=== PATIENT | male | born 1990 | race Hispanic/Latino ===

== ENCOUNTER 2017-12-06 18:57 | Emergency (ER) | payer OTHER ==
--- NOTE | 2017-12-06 19:24 | EDPHYS ---
Physician Documentation [facility] Name: Efe Cox Age: 27 yrs Sex: Male : 1990 Arrival Date: 12/06/2017 Time: 19:00 Bed 10 Private MD: None, None ED Physician Michael Veronica HPI: 12/06 19:21 This 27 yrs old Male presents to ER via Ambulatory with complaints of Knee rn Pain. 19:21 The patient presents with pain, swelling. The complaints affect the left knee. Onset: rn The symptoms/episode began/occurred at an unknown time. Associated signs and symptoms: Pertinent positives: swelling, Pertinent negatives fever, weakness. Severity of symptoms: At their worst the symptoms were mild, in the emergency department the symptoms are unchanged. The patient has not experienced similar symptoms in the past. Reports works constantly on his knees, hurts to put pressure on his knees, no trauma, able to walk and climb without difficulty. NO IV drug use. No medical problems. . Historical: - Allergies: 19:09 No Known Allergies; ak1 - Home Meds: 19:09 None [Active]; ak1 - PMHx: 19:09 None; ak1 - PSHx: 19:09 None; ak1 - Immunization history:: Adult Immunizations unknown. - Social history:: Smoking status: Patient uses tobacco products, smokes one-half pack cigarettes per day. - Ebola Screening: : No symptoms or risks identified at this time. - Family history:: not pertinent. - Hospitalizations: : No recent hospitalization is reported. ROS: 19:21 Constitutional: Negative for fever, chills, and weight loss, Eyes: Negative for injury, rn pain, redness, and discharge, Cardiovascular: Negative for chest pain, palpitations, and edema, Respiratory: Negative for shortness of breath, cough, wheezing, and pleuritic chest pain, Abdomen/GI: Negative for abdominal pain, nausea, vomiting, diarrhea, and constipation, MS/Extremity: + left knee pain Skin: Negative for injury, rash, and discoloration, Neuro: Negative for headache, weakness, numbness, tingling, and seizure. Exam: 19:21 Constitutional: This is a well developed, well nourished patient who is awake, alert, rn and in no acute distress. Skin: Warm, dry with normal turgor. Normal color with no rashes, no lesions, and no evidence of cellulitis. MS/ Extremity: Pulses equal, no cyanosis. Neurovascular intact. Full, normal range of motion. Equal circumference. + small left knee effusion, no fluctuance, no pain with ROM. Vital Signs: 19:09 BP 154 / 81; Pulse 88; Resp 18; Temp 99.4(TE); Pulse Ox 100% on R/A; Weight 92.99 kg ak1 (R); Height 5 ft. 5 in. (165.10 cm) (R); Pain 6/10; 19:09 Body Mass Index 34.11 (92.99 kg, 165.10 cm) ak1 MDM: 19:13 Patient medically screened. rn 19:21 Differential diagnosis: tendonitis, pre-patellar bursitis, knee effusion. Data rn reviewed: vital signs, nurses notes, and as a result, I will discharge patient. Counseling: I had a detailed discussion with the patient and/or guardian regarding: the historical points, exam findings, and any diagnostic results supporting the discharge/admit diagnosis, the need for outpatient follow up, to return to the emergency department if symptoms worsen or persist or if there are any questions or concerns that arise at home. Special discussion: I discussed with the patient/guardian in detail that at this point there is no indication for admission to the hospital. It is understood, however, that if the symptoms persist or worsen the patient needs to return immediately for re-evaluation. Administered Medications: No medications were administered Disposition: 12/06/17 19:24 Discharged to Home. Impression: Pain in left knee, Prepatellar bursitis, left knee. - Condition is Stable. - Discharge Instructions: Bursitis, Knee Pain. - Prescriptions for Clindamycin HCl 300 mg Oral Capsule - take 1 capsule by ORAL route every 6 hours for 10 days; 40 capsule. Ibuprofen 800 mg Oral Tablet - take 1 tablet by ORAL route every 12 hours As needed take with food; 20 tablet. - Medication Reconciliation Form, Thank You Letter, Antibiotic Education, Prescription Opioid Use, Work release form form. - Follow up: Private Physician; When: As needed; Reason: Recheck today's complaints, Re-evaluation by your physician. - Problem is an ongoing problem. - Symptoms have improved. Signatures: Michael Veronica MD MD rn Krenek, Amber, RN RN ak1 Kamilla Coyle RN RN rk2 Corrections: (The following items were deleted from the chart) 19:34 19:24 12/06/2017 19:24 Discharged to Home. Impression: Pain in left knee; Prepatellar rk2 bursitis, left knee. Condition is Stable. Discharge Instructions: Bursitis, Knee Pain. Forms are Medication Reconciliation Form, Thank You Letter, Antibiotic Education, Prescription Opioid Use. Follow up: Private Physician; When: As needed; Reason: Recheck today's complaints, Re-evaluation by your physician. Problem is an ongoing problem. Symptoms have improved. rn
--- NOTE | 2017-12-06 19:24 | ER ---
Nurse's Notes [facility] Name: Efe Cox Age: 27 yrs Sex: Male : 1990 Arrival Date: 12/06/2017 Time: 19:00 Bed 10 Private MD: None, None Diagnosis: Pain in left knee;Prepatellar bursitis, left knee Presentation: 12/06 19:08 Presenting complaint: Patient states: left knee pain and swelling since last night. pt ak1 kneels at work. Transition of care: patient was not received from another setting of care. Onset of symptoms was December 05, 2017. Risk Assessment: Do you want to hurt yourself or someone else? Patient reports no desire to harm self or others. Initial Sepsis Screen: Does the patient meet any 2 criteria? No. Patient's initial sepsis screen is negative. Does the patient have a suspected source of infection? No. Patient's initial sepsis screen is negative. Care prior to arrival: None. 19:08 Method Of Arrival: Ambulatory ak1 19:08 Acuity: RAN 4 ak1 Triage Assessment: 19:09 General: Appears in no apparent distress. Behavior is calm, cooperative. Pain: ak1 Complains of pain in left knee. EENT: No signs and/or symptoms were reported regarding the EENT system. Neuro: No deficits noted. Cardiovascular: No deficits noted. Respiratory: No deficits noted. GI: No signs and/or symptoms were reported involving the gastrointestinal system. : No signs and/or symptoms were reported regarding the genitourinary system. Derm: No signs and/or symptoms reported regarding the dermatologic system. Musculoskeletal: Range of motion: intact in all extremities, Swelling present in left knee Reports pain in left knee. Historical: - Allergies: 19:09 No Known Allergies; ak1 - Home Meds: 19:09 None [Active]; ak1 - PMHx: 19:09 None; ak1 - PSHx: 19:09 None; ak1 - Immunization history:: Adult Immunizations unknown. - Social history:: Smoking status: Patient uses tobacco products, smokes one-half pack cigarettes per day. - Ebola Screening: : No symptoms or risks identified at this time. - Family history:: not pertinent. - Hospitalizations: : No recent hospitalization is reported. Screenin:10 Abuse screen: Denies threats or abuse. Denies injuries from another. Nutritional ak1 screening: No deficits noted. Tuberculosis screening: No symptoms or risk factors identified. Fall Risk None identified. Vital Signs: 19:09 BP 154 / 81; Pulse 88; Resp 18; Temp 99.4(TE); Pulse Ox 100% on R/A; Weight 92.99 kg ak1 (R); Height 5 ft. 5 in. (165.10 cm) (R); Pain 6/10; 19:09 Body Mass Index 34.11 (92.99 kg, 165.10 cm) ak1 ED Course: 19:00 Patient arrived in ED. sb2 19:00 None, None is Private Physician. sb2 19:08 Triage completed. ak1 19:09 Michael Veronica MD is Attending Physician. rn 19:09 Arm band placed on Patient placed in an exam room, on a stretcher, Patient notified of ak1 wait time. 19:10 Patient has correct armband on for positive identification. ak1 19:14 Kamilla Coyle RN is Primary Nurse. rk2 19:33 No provider procedures requiring assistance completed. Patient did not have IV access rk2 during this emergency room visit. Administered Medications: No medications were administered Outcome: 19:24 Discharge ordered by . rn 19:33 Discharged to home ambulatory. rk2 19:33 Condition: good 19:33 Discharge instructions given to patient, Prescriptions given X 2. 19:34 Patient left the ED. rk2 Signatures: Michael Veronica MD MD rn Krenek, Amber RN RN ak1 Kamilla Coyle RN RN rk2 Indira Casas sb2
== END 2017-12-06 19:34 | disposition home or self-care (01) ==
LOC: ER 18:57
DX: M70.42 Prepatellar bursitis, left knee (principal); M25.562 Pain in left knee; F17.210 Nicotine dependence, cigarettes, uncomplicated
CPT/HCPCS: 99282

== ENCOUNTER 2018-08-10 20:20 | Emergency (ER) | payer OTHER ==
[2018-08-10] MEDS ORDERED: DIAZEPAM 5 MG TABLET ONE (21:20)
[2018-08-10] MEDS ORDERED: HYDROCODONE/APAP 5/325 MG TAB ONE (21:20)
--- NOTE | 2018-08-10 21:44 | ER ---
Nurse's Notes [facility] Name: Efe Cox Age: 28 yrs Sex: Male : 1990 Arrival Date: 08/10/2018 Time: 20:24 Bed 27 Private MD: Diagnosis: Pain in right shoulder;Muscle spasm of back Presentation: 08/10 20:27 Presenting complaint: Patient states: Patient does a lot of lifting at work and has tl1 been c/o pain in his bilateral arms for 2 days. Work sent him to hospital because they noticed swelling in his right arm and his blood pressure was elevated. Transition of care: patient was not received from another setting of care. Onset of symptoms was August 10, 2018. Risk Assessment: Do you want to hurt yourself or someone else? Patient reports no desire to harm self or others. Initial Sepsis Screen: Does the patient meet any 2 criteria? No. Patient's initial sepsis screen is negative. Does the patient have a suspected source of infection? No. Patient's initial sepsis screen is negative. Care prior to arrival: None. 20:27 Method Of Arrival: Ambulatory tl1 20:27 Acuity: RAN 3 tl1 Historical: - Allergies: 20:29 No Known Allergies; tl1 - Home Meds: 20:29 None [Active]; tl1 - PMHx: 20:29 None; tl1 - PSHx: 20:29 Knee surgery; tl1 - Immunization history:: Adult Immunizations up to date. - Social history:: Smoking status: Patient uses tobacco products, smokes one-half pack cigarettes per day, Patient uses alcohol, occasionally. - Ebola Screening: : Patient negative for fever greater than or equal to 101.5 degrees Fahrenheit, and additional compatible Ebola Virus Disease symptoms Patient denies exposure to infectious person Patient denies travel to an Ebola-affected area in the 21 days before illness onset. Screenin:35 Abuse screen: Denies threats or abuse. Denies injuries from another. Nutritional ca1 screening: No deficits noted. Tuberculosis screening: No symptoms or risk factors identified. Fall Risk None identified. Assessment: 20:35 General: Appears in no apparent distress. comfortable, Behavior is calm, cooperative, ca1 appropriate for age. Pain: Complains of pain in right trapezius and right scapular area Pain does not radiate. Pain currently is 5 out of 10 on a pain scale. Neuro: Level of Consciousness is awake, alert, obeys commands, Oriented to person, place, time, situation. Cardiovascular: Heart tones S1 S2 present Capillary refill < 3 seconds Patient's skin is warm and dry. Respiratory: Airway is patent Respiratory effort is even, unlabored, Respiratory pattern is regular, symmetrical. GI: No signs and/or symptoms were reported involving the gastrointestinal system. : No signs and/or symptoms were reported regarding the genitourinary system. EENT: No signs and/or symptoms were reported regarding the EENT system. Derm: Skin is intact, is healthy with good turgor, Skin is pink, warm \T\ dry. Musculoskeletal: Circulation, motion, and sensation intact. Range of motion: limited in right shoulder. 21:30 Reassessment: Patient appears in no apparent distress at this time. Patient and/or ca1 family updated on plan of care and expected duration. Pain level reassessed. Patient is alert, oriented x 3, equal unlabored respirations, skin warm/dry/pink. Patient states feeling better. Vital Signs: 20:30 BP 123 / 77; Pulse 78; Resp 16; Temp 98; Pulse Ox 100% ; Weight 86.18 kg; Height 5 ft. tl1 7 in. (170.18 cm); Pain 4/10; 21:35 BP 129 / 84; Pulse 81; Resp 18; Pulse Ox 99% on R/A; ca1 20:30 Body Mass Index 29.76 (86.18 kg, 170.18 cm) tl1 ED Course: 20:24 Patient arrived in ED. es 20:29 Triage completed. tl1 20:30 Arm band placed on right wrist. tl1 20:32 Whitney Rubi, RN is Primary Nurse. ca1 20:35 Patient has correct armband on for positive identification. Bed in low position. Call ca1 light in reach. Side rails up X 1. Pulse ox on. NIBP on. 20:36 Megan Chavez FNP-C is PHCP. snw 20:36 Tre Vallecillo MD is Attending Physician. snw 21:51 No provider procedures requiring assistance completed. Patient did not have IV access ca1 during this emergency room visit. Administered Medications: 21:11 Drug: Telferner 5 mg-325 mg 1 tabs Route: PO; rv 21:46 Follow up: Response: No adverse reaction; Pain is decreased ca1 21:11 Drug: Valium 5 mg Route: PO; rv 21:45 Follow up: Response: No adverse reaction; Pain is decreased ca1 Outcome: 21:44 Discharge ordered by . beau 21:51 Discharged to home ambulatory, with family. ca1 21:51 Condition: stable 21:51 Discharge instructions given to patient, Instructed on discharge instructions, follow up and referral plans. medication usage, Demonstrated understanding of instructions, follow-up care, medications, Prescriptions given X 2. 21:56 Patient left the ED. ca1 Signatures: Megan Chavez, RETAIL SALES PROFESSIONAL-C RETAIL SALES PROFESSIONAL-Csnw Kate Atkinson Tonya RN RN tl1 Jose Maria Murdock RN RN rv Whitney Rubi RN RN ca1
--- NOTE | 2018-08-10 21:44 | EDPHYS ---
Physician Documentation [facility] Name: Efe Cox Age: 28 yrs Sex: Male : 1990 Arrival Date: 08/10/2018 Time: 20:24 Bed 27 Private MD: ED Physician Tre Vallecillo HPI: 08/10 21:34 This 28 yrs old Male presents to ER via Ambulatory with complaints of Arm snw Pain, arm swollen. 21:34 The patient or guardian complains of pain, that is acute, swelling. The complaints snw affect the posterior aspect of right shoulder. Context: resulted from repetitive motion repetitive lifting. Onset: The symptoms/episode began/occurred gradually, 2 day(s) ago, and became worse. Associated signs and symptoms: Pertinent positives: pain, swelling, tingling. Severity of symptoms: At their worst the symptoms were moderate. It is unknown whether or not the patient has had similar symptoms in the past. It is unknown whether or not the patient has recently seen a physician. Historical: - Allergies: 20:29 No Known Allergies; tl1 - Home Meds: 20:29 None [Active]; tl1 - PMHx: 20:29 None; tl1 - PSHx: 20:29 Knee surgery; tl1 - Immunization history:: Adult Immunizations up to date. - Social history:: Smoking status: Patient uses tobacco products, smokes one-half pack cigarettes per day, Patient uses alcohol, occasionally. - Ebola Screening: : Patient negative for fever greater than or equal to 101.5 degrees Fahrenheit, and additional compatible Ebola Virus Disease symptoms Patient denies exposure to infectious person Patient denies travel to an Ebola-affected area in the 21 days before illness onset. ROS: 21:33 Constitutional: Negative for fever, chills, and weight loss, Eyes: Negative for injury, snw pain, redness, and discharge, ENT: Negative for injury, pain, and discharge, Neck: Negative for injury, pain, and swelling, Cardiovascular: Negative for chest pain, palpitations, and edema, Respiratory: Negative for shortness of breath, cough, wheezing, and pleuritic chest pain, Abdomen/GI: Negative for abdominal pain, nausea, vomiting, diarrhea, and constipation, Back: Negative for injury and pain, : Negative for injury, bleeding, discharge, and swelling, Skin: Negative for injury, rash, and discoloration, Neuro: Negative for headache, weakness, numbness, tingling, and seizure, Psych: Negative for depression, anxiety, suicide ideation, homicidal ideation, and hallucinations. 21:33 MS/extremity: Positive for swelling, tenderness, of the right shoulder and right scapular area. Exam: 21:28 Constitutional: This is a well developed, well nourished patient who is awake, alert, snw and in no acute distress. Head/Face: Normocephalic, atraumatic. Eyes: Pupils equal round and reactive to light, extra-ocular motions intact. Lids and lashes normal. Conjunctiva and sclera are non-icteric and not injected. Cornea within normal limits. Periorbital areas with no swelling, redness, or edema. ENT: Nares patent. No nasal discharge, no septal abnormalities noted. Tympanic membranes are normal and external auditory canals are clear. Oropharynx with no redness, swelling, or masses, exudates, or evidence of obstruction, uvula midline. Mucous membranes moist. Neck: Trachea midline, no thyromegaly or masses palpated, and no cervical lymphadenopathy. Supple, full range of motion without nuchal rigidity, or vertebral point tenderness. No Meningismus. Chest/axilla: Normal chest wall appearance and motion. Nontender with no deformity. No lesions are appreciated. Cardiovascular: Regular rate and rhythm with a normal S1 and S2. No gallops, murmurs, or rubs. Normal PMI, no JVD. No pulse deficits. Respiratory: Lungs have equal breath sounds bilaterally, clear to auscultation and percussion. No rales, rhonchi or wheezes noted. No increased work of breathing, no retractions or nasal flaring. Abdomen/GI: Soft, non-tender, with normal bowel sounds. No distension or tympany. No guarding or rebound. No evidence of tenderness throughout. Back: No spinal tenderness. No costovertebral tenderness. Full range of motion. Skin: Warm, dry with normal turgor. Normal color with no rashes, no lesions, and no evidence of cellulitis. Neuro: Awake and alert, GCS 15, oriented to person, place, time, and situation. Cranial nerves II-XII grossly intact. Motor strength 5/5 in all extremities. Sensory grossly intact. Cerebellar exam normal. Normal gait. Psych: Awake, alert, with orientation to person, place and time. Behavior, mood, and affect are within normal limits. 21:28 Musculoskeletal/extremity: Extremities: grossly normal except: noted in the right trapezius and right shoulder: pain, ROM: full active range of motion, full passive range of motion, Pulses: are normal with no appreciated deficits, Sensation intact. Joints: All joints appear normal with full range of motion. Vital Signs: 20:30 BP 123 / 77; Pulse 78; Resp 16; Temp 98; Pulse Ox 100% ; Weight 86.18 kg; Height 5 ft. tl1 7 in. (170.18 cm); Pain 4/10; 21:35 BP 129 / 84; Pulse 81; Resp 18; Pulse Ox 99% on R/A; ca1 20:30 Body Mass Index 29.76 (86.18 kg, 170.18 cm) tl1 MDM: 20:41 Patient medically screened. snw 21:46 Data reviewed: vital signs, nurses notes. Data interpreted: Pulse oximetry: on room air snw is 99 %. Interpretation: normal. Counseling: I had a detailed discussion with the patient and/or guardian regarding: the historical points, exam findings, and any diagnostic results supporting the discharge/admit diagnosis, the need for outpatient follow up, to return to the emergency department if symptoms worsen or persist or if there are any questions or concerns that arise at home. Special discussion: Based on the history and exam findings, there is no indication for further emergent testing or inpatient evaluation. I discussed with the patient/guardian the need to see the orthopedic surgeon for further evaluation of the symptoms. I discussed with the patient/guardian the need to see the primary care provider for further evaluation of the symptoms. Administered Medications: 21:11 Drug: Peabody 5 mg-325 mg 1 tabs Route: PO; rv 21:46 Follow up: Response: No adverse reaction; Pain is decreased ca1 21:11 Drug: Valium 5 mg Route: PO; rv 21:45 Follow up: Response: No adverse reaction; Pain is decreased ca1 Disposition: 08/11 05:50 Co-signature as Attending Physician, Tre Vallecillo MD I agree with the assessment and 4 plan of care. Disposition: 08/10/18 21:44 Discharged to Home. Impression: Pain in right shoulder, Muscle spasm of back. - Condition is Stable. - Discharge Instructions: Joint Pain, Muscle Cramps and Spasms, Musculoskeletal Pain, Shoulder Pain, Cryotherapy, Heat Therapy. - Prescriptions for Diclofenac Sodium 75 mg Oral Tablet Sustained Release - take 1 tablet by ORAL route 2 times per day; 30 tablet. orphenadrine citrate 100 mg Oral Tablet Sustained Release - take 1 tablet by ORAL route 2 times per day As needed; 20 tablet. - Medication Reconciliation Form, Thank You Letter, Antibiotic Education, Prescription Opioid Use, Work release form form. - Follow up: Private Physician; When: 2 - 3 days; Reason: Recheck today's complaints, Continuance of care, Re-evaluation by your physician. Follow up: Emergency Department; When: As needed; Reason: Worsening of condition. Signatures: Megan Chavez, LORIE-C ACID RETORT OPERATOR-CsnShari Hampton, RN RN tl1 Tre Vallecillo MD MD tw4 Jose Maria Murdock RN RN rv Whitney Rubi RN RN ca1 Corrections: (The following items were deleted from the chart) 08/10 21:56 21:44 08/10/2018 21:44 Discharged to Home. Impression: Pain in right shoulder; Muscle ca1 spasm of back. Condition is Stable. Forms are Medication Reconciliation Form, Thank You Letter, Antibiotic Education, Prescription Opioid Use. Follow up: Private Physician; When: 2 - 3 days; Reason: Recheck today's complaints, Continuance of care, Re-evaluation by your physician. Follow up: Emergency Department; When: As needed; Reason: Worsening of condition. snw
== END 2018-08-10 21:56 | disposition home or self-care (01) ==
LOC: ER 20:20
DX: M62.830 Muscle spasm of back (principal); F17.210 Nicotine dependence, cigarettes, uncomplicated
CPT/HCPCS: 99283

== ENCOUNTER 2018-09-16 23:57 | Emergency (ER) | payer OTHER ==
[2018-09-17] MEDS ORDERED: ACETAMINOPHEN 500 MG TAB ONE (00:56)
[2018-09-17] MEDS ORDERED: IBUPROFEN 400 MG TAB ONE (00:56)
--- NOTE | 2018-09-17 01:24 | EDPHYS ---
Physician Documentation [facility] Name: Efe Cox Age: 28 yrs Sex: Male : 1990 Arrival Date: 09/17/2018 Time: 00:01 Bed 13 Private MD: ED Physician Ronni Mccracken HPI: 09/17 00:40 This 28 yrs old Male presents to ER via Ambulatory with complaints of Leg cp Swelling, Knee Pain. 00:40 The patient presents with pain, that is acute, swelling, tenderness. The complaints cp affect the medial aspect of right knee. Context: resulted from an unknown cause, the patient can fully bear weight, the patient is able to ambulate, history of previous surgery. Onset: The symptoms/episode began/occurred yesterday. Modifying factors: the symptoms are aggravated by movement, weight bearing. Associated signs and symptoms: Pertinent negatives calf tenderness, numbness, warmth. Treatment prior to arrival includes: no previous treatment. Severity of symptoms: in the emergency department the symptoms are actually worse. Historical: - Allergies: 00:14 No Known Allergies; jb4 - Home Meds: 00:14 None [Active]; jb4 - PMHx: 00:14 None; jb4 - PSHx: 00:14 Knee surgery; jb4 - Immunization history:: Adult Immunizations up to date. - Social history:: Smoking status: Patient uses tobacco products, smokes one pack cigarettes per day. - Ebola Screening: : Patient negative for fever greater than or equal to 101.5 degrees Fahrenheit, and additional compatible Ebola Virus Disease symptoms Patient denies exposure to infectious person Patient denies travel to an Ebola-affected area in the 21 days before illness onset. ROS: 00:45 Constitutional: Negative for body aches, chills, fever, poor PO intake. cp 00:45 Eyes: Negative for injury, pain, redness, and discharge. cp 00:45 ENT: Negative for drainage from ear(s), ear pain, sore throat, difficulty swallowing, difficulty handling secretions. 00:45 Cardiovascular: Negative for chest pain, edema. 00:45 Respiratory: Negative for cough, shortness of breath. 00:45 Abdomen/GI: Negative for abdominal pain, nausea, vomiting, and diarrhea. 00:45 MS/extremity: Positive for pain, swelling, tenderness, of the right knee, Negative for injury or acute deformity, decreased range of motion, paresthesias. 00:45 Skin: Negative for rash. 00:45 Neuro: Negative for dizziness, headache, numbness, weakness. 00:45 All other systems are negative. Exam: 00:55 Constitutional: The patient appears in no acute distress, alert, non-diaphoretic, cp non-toxic, well developed, well nourished. 00:55 Head/Face: Normocephalic, atraumatic. cp 00:55 Eyes: Periorbital structures: appear normal, Conjunctiva: normal, no exudate, no injection, Sclera: no appreciated abnormality, Lids and lashes: appear normal. 00:55 ENT: External ear(s): are unremarkable, Nose: is normal, Mouth: is normal. 00:55 Chest/axilla: Inspection: normal. 00:55 Cardiovascular: Rate: normal. 00:55 Respiratory: the patient does not display signs of respiratory distress, Respirations: normal, no use of accessory muscles, labored breathing, is not present. 00:55 Abdomen/GI: Exam negative for discomfort, distension, guarding, Inspection: abdomen appears normal. 00:55 Back: pain, is absent, ROM is normal. 00:55 Musculoskeletal/extremity: Joints: All joints are normal except the medial aspect right knee displays painful range of motion, swelling, tenderness, DVT Exam: no pain, no swelling, no tenderness, negative Homans' sign noted on exam, no erythema, no increased warmth. 00:55 Skin: cellulitis, is not appreciated, no rash present. Vital Signs: 00:14 BP 126 / 84 LA; Pulse 73; Resp 17 S; Temp 98.1(O); Pulse Ox 100% ; Weight 86.18 kg (R); jb4 Height 5 ft. 8 in. (172.72 cm) (R); 01:00 BP 124 / 87; Pulse 73; Resp 16; Pulse Ox 99% on R/A; jb4 00:14 Body Mass Index 28.89 (86.18 kg, 172.72 cm) jb4 Procedures: 01:30 Crutch training provided to patient and/or family. Return demonstration given. cp MDM: 00:03 Patient medically screened. cp 01:00 Differential diagnosis: dislocation, closed fracture, tendonitis, sprain, effusion. cp 01:22 Data reviewed: vital signs, nurses notes, radiologic studies, plain films. cp 01:22 Test interpretation: by ED physician or midlevel provider: plain radiologic studies. cp Counseling: I had a detailed discussion with the patient and/or guardian regarding: the historical points, exam findings, and any diagnostic results supporting the discharge/admit diagnosis, radiology results, to return to the emergency department if symptoms worsen or persist or if there are any questions or concerns that arise at home. Response to treatment: the patient's symptoms have mildly improved after treatment. 09/17 00:38 Order name: XRAY Knee RIGHT 3 view cp 09/17 01:07 Order name: Crutches; Complete Time: 01:51 cp 09/17 01:07 Order name: Rey wrap-joint; Complete Time: :51 cp Administered Medications: 00:46 Drug: Tylenol 1000 mg Route: PO; jb4 01:51 Follow up: Response: No adverse reaction; Pain is decreased jb4 00:46 Drug: Ibuprofen 800 mg Route: PO; jb4 01:51 Follow up: Response: No adverse reaction; Pain is decreased jb4 Disposition: 09/17/18 01:23 Discharged to Home. Impression: Pain in right knee. - Condition is Stable. - Discharge Instructions: Elastic Bandage and RICE, How to Use a Knee Brace, Knee Pain. - Prescriptions for Cyclobenzaprine 10 mg Oral Tablet - take 1 tablet by ORAL route every 8 hours As needed no driving while taking medication; 15 tablet. - Medication Reconciliation Form, Thank You Letter, Antibiotic Education, Prescription Opioid Use, Work release form form. - Follow up: Bryon Le MD; When: 2 - 3 days; Reason: Recheck today's complaints. - Problem is new. - Symptoms have improved. Signatures: Dispatcher [employer] EDMS Dimas Diaz PA PA cp William Diaz, RN RN jb4 Corrections: (The following items were deleted from the chart) 01:51 01:23 09/17/2018 01:23 Discharged to Home. Impression: Pain in right knee. Condition is jb4 Stable. Forms are Medication Reconciliation Form, Thank You Letter, Antibiotic Education, Prescription Opioid Use. Follow up: Bryon Le; When: 2 - 3 days; Reason: Recheck today's complaints. Problem is new. Symptoms have improved. cp 18:10 01:00 Crutch training provided to patient and/or family. Return demonstration given cp cp
--- NOTE | 2018-09-17 01:24 | ER ---
Nurse's Notes [facility] Name: Efe Cox Age: 28 yrs Sex: Male : 1990 Arrival Date: 09/17/2018 Time: 00:01 Bed 13 Private MD: Diagnosis: Pain in right knee Presentation: 09/17 00:09 Presenting complaint: Significant other states: HE IS HAVING THE PAIN SINCE YESTERDAY. jb4 HE WAS TAKING DICLOFENAC. TOOK DICLOFENAC YESTERDAY. PAIN IS NOT GETTING BETTER AND IT SWELLING NOW. Transition of care: patient was not received from another setting of care. Onset of symptoms was September 16, 2018 at 08:00. Risk Assessment: Do you want to hurt yourself or someone else? Patient reports no desire to harm self or others. Initial Sepsis Screen: Does the patient meet any 2 criteria? No. Patient's initial sepsis screen is negative. Does the patient have a suspected source of infection? No. Patient's initial sepsis screen is negative. Care prior to arrival: None. 00:09 Method Of Arrival: Ambulatory jb4 00:09 Acuity: RAN 4 jb4 Triage Assessment: 00:16 General: Appears in no apparent distress. comfortable, Behavior is calm, cooperative. jb4 Pain: Complains of pain in right knee Pain currently is 0 out of 10 on a pain scale. at worst was 8 out of 10 on a pain scale. EENT: No signs and/or symptoms were reported regarding the EENT system. Neuro: Level of Consciousness is awake, alert, obeys commands, Oriented to person, place, time, situation. Cardiovascular: Capillary refill < 3 seconds. Respiratory: Airway is patent. GI: No signs and/or symptoms were reported involving the gastrointestinal system. : No signs and/or symptoms were reported regarding the genitourinary system. Derm: Skin is intact. Musculoskeletal: Reports pain in right knee. Historical: - Allergies: 00:14 No Known Allergies; jb4 - Home Meds: 00:14 None [Active]; jb4 - PMHx: 00:14 None; jb4 - PSHx: 00:14 Knee surgery; jb4 - Immunization history:: Adult Immunizations up to date. - Social history:: Smoking status: Patient uses tobacco products, smokes one pack cigarettes per day. - Ebola Screening: : Patient negative for fever greater than or equal to 101.5 degrees Fahrenheit, and additional compatible Ebola Virus Disease symptoms Patient denies exposure to infectious person Patient denies travel to an Ebola-affected area in the 21 days before illness onset. Screenin:15 Abuse screen: Denies threats or abuse. Nutritional screening: No deficits noted. jb4 Tuberculosis screening: No symptoms or risk factors identified. Fall Risk None identified. Assessment: 00:15 General: Appears in no apparent distress. comfortable, Behavior is calm, cooperative, jb4 appropriate for age. Pain: Complains of pain in right knee Pain does not radiate. Pain currently is 5 out of 10 on a pain scale. Quality of pain is described as stabbing. Neuro: Level of Consciousness is awake, alert, obeys commands, Oriented to person, place, time, situation. Cardiovascular: Patient's skin is warm and dry. Respiratory: Airway is patent Respiratory effort is even, unlabored, Respiratory pattern is regular, symmetrical. GI: No signs and/or symptoms were reported involving the gastrointestinal system. : No signs and/or symptoms were reported regarding the genitourinary system. EENT: No signs and/or symptoms were reported regarding the EENT system. Derm: Skin is intact, Skin is pink, warm \T\ dry. Musculoskeletal: Circulation, motion, and sensation intact. 01:39 Reassessment: Patient appears in no apparent distress at this time. Patient and/or jb4 family updated on plan of care and expected duration. Pain level reassessed. Patient is alert, oriented x 3, equal unlabored respirations, skin warm/dry/pink. Vital Signs: 00:14 BP 126 / 84 LA; Pulse 73; Resp 17 S; Temp 98.1(O); Pulse Ox 100% ; Weight 86.18 kg (R); jb4 Height 5 ft. 8 in. (172.72 cm) (R); 01:00 BP 124 / 87; Pulse 73; Resp 16; Pulse Ox 99% on R/A; jb4 00:14 Body Mass Index 28.89 (86.18 kg, 172.72 cm) jb4 ED Course: 00:01 Patient arrived in ED. es 00:03 Dimas Diaz PA is PHCP. cp 00:03 Ronni Mccracken MD is Attending Physician. cp 00:03 Joe, William, RN is Primary Nurse. jb4 00:12 Triage completed. jb4 00:15 Patient has correct armband on for positive identification. Bed in low position. Call jb4 light in reach. Side rails up X 1. Pulse ox on. NIBP on. 01:01 XRAY Knee RIGHT 3 view In Process Unspecified. EDMS 01:21 Bryon Le MD is Referral Physician. cp 01:41 No provider procedures requiring assistance completed. Patient did not have IV access jb4 during this emergency room visit. Administered Medications: 00:46 Drug: Tylenol 1000 mg Route: PO; jb4 01:51 Follow up: Response: No adverse reaction; Pain is decreased jb4 00:46 Drug: Ibuprofen 800 mg Route: PO; jb4 01:51 Follow up: Response: No adverse reaction; Pain is decreased jb4 Outcome: 01:23 Discharge ordered by MD. cp 01:41 Discharged to home ambulatory, with family. jb4 01:41 Condition: stable 01:41 Discharge instructions given to patient, family, Instructed on discharge instructions, follow up and referral plans. medication usage, crutch walking, Demonstrated understanding of instructions, follow-up care, medications, crutch walking, Prescriptions given X 1. 01:51 Patient left the ED. jb4 Signatures: Dispatcher [employer] EDMS Kate Atkinson Corey, PA PA cp William Diaz, RN RN jb4
--- NOTE | 2018-09-17 07:56 | RAD REPORT ---
EXAM DESCRIPTION: RAD - Knee Right 3 View - 09/17/2018 1:01 am CLINICAL HISTORY: Knee pain and swelling COMPARISON: None. FINDINGS: No acute fractures seen. No dislocation or periosteal reaction. There is remodeling of the inferior margin of the patella without an acute component seen. This is likely the sequela of a prio r patella fracture or injury. Lateral view shows clustered calcifications superior margin of the antonio lla difficult to localize on the frontal and oblique projections. These are suspected to be calcifica tions within the quadriceps tendon. Loose bodies are not entirely excluded. No measurable joint effusion. No joint space narrowing. Soft tissues around the patella tendon are pr ominent. IMPRESSION: No acute bone or joint finding confirmed in the right knee. Evidence for old trauma to the patella and quadriceps tendon Clinical concerns for internal derangement or occult bony injury could be further assessed with MR im aging.
== END 2018-09-17 01:51 | disposition home or self-care (01) ==
LOC: ER 23:57
DX: M25.561 Pain in right knee (principal); F17.210 Nicotine dependence, cigarettes, uncomplicated
CPT/HCPCS: 99284

== ENCOUNTER 2019-01-19 13:39 | Emergency (ER) | payer OTHER ==
--- NOTE | 2019-01-19 14:24 | ER ---
Nurse's Notes [facility] Name: Efe Austin Age: 28 yrs Sex: Male : 1990 Arrival Date: 01/19/2019 Time: 13:44 Bed 9 Private MD: Diagnosis: Otalgia;Sialoadenitis, unspecified Presentation: 01/19 13:53 Presenting complaint: Patient states: L ear pain x 1 day, denies N/V or fever, also ph reports slight dizziness. Transition of care: patient was not received from another setting of care. Onset of symptoms was January 19, 2019. Risk Assessment: Do you want to hurt yourself or someone else? Patient reports no desire to harm self or others. Initial Sepsis Screen: Does the patient meet any 2 criteria? No. Patient's initial sepsis screen is negative. Does the patient have a suspected source of infection? No. Patient's initial sepsis screen is negative. Care prior to arrival: None. 13:53 Method Of Arrival: Ambulatory ph 13:53 Acuity: RAN 4 ph Historical: - Allergies: 13:55 No Known Allergies; ph - Home Meds: 13:55 None [Active]; ph - PMHx: 13:55 None; ph - Immunization history:: Adult Immunizations unknown. - Social history:: Smoking status: Patient/guardian denies using tobacco. - Ebola Screening: : No symptoms or risks identified at this time. Screenin:02 Abuse screen: Denies threats or abuse. Denies injuries from another. Nutritional ph screening: No deficits noted. Tuberculosis screening: No symptoms or risk factors identified. Fall Risk None identified. Assessment: 14:01 General: Appears in no apparent distress. comfortable, well groomed, Behavior is calm, ph cooperative, appropriate for age, Reports chills for fever for 12-24 hours. Pain: Complains of pain in left ear. Neuro: Level of Consciousness is awake, alert, obeys commands, Oriented to person, place, time, situation, Reports dizziness. Cardiovascular: Capillary refill < 3 seconds in bilateral fingers Patient's skin is warm and dry. Respiratory: Airway is patent Respiratory effort is even, unlabored. GI: Patient currently denies diarrhea, nausea, vomiting. EENT: Reports pain in left ear. Derm: Skin is intact, is healthy with good turgor, Skin is pink, warm \T\ dry. Musculoskeletal: Circulation, motion, and sensation intact. Range of motion: intact in all extremities. Vital Signs: 13:54 BP 149 / 82; Pulse 62; Resp 18; Temp 99.0; Pulse Ox 100% on R/A; ph 14:30 BP 132 / 78; Pulse 61; Resp 18; Temp 98.9; Pulse Ox 99% on R/A; ph ED Course: 13:44 Patient arrived in ED. mr 13:54 Triage completed. ph 14:00 Ondina Echevarria, RN is Primary Nurse. ph 14:02 Edwin Garcia PA is PHCP. [facility] 14:02 Anthony Valadez MD is Attending Physician. [facility] 14:02 Patient has correct armband on for positive identification. Bed in low position. Call ph light in reach. 14:02 Arm band placed on Patient placed in an exam room. ph 14:22 Magali Roy MD is Referral Physician. [facility] 14:30 No provider procedures requiring assistance completed. Patient did not have IV access ph during this emergency room visit. Administered Medications: No medications were administered Outcome: 14:23 Discharge ordered by . [facility] 14:31 Patient left the ED. jb1 14:31 Discharged to home ambulatory. ph 14:31 Condition: good 14:31 Discharge instructions given to patient, Instructed on discharge instructions, follow up and referral plans. medication usage, Demonstrated understanding of instructions, follow-up care, medications, Prescriptions given X 1. Signatures: Yuniel Gonzalez jb1 Edwin Garcia PA PA [facility] Amy Neville mr Ondina Echevarria RN RN ph
--- NOTE | 2019-01-19 14:25 | EDPHYS ---
Physician Documentation [facility] Name: Efe Austin Age: 28 yrs Sex: Male : 1990 Arrival Date: 01/19/2019 Time: 13:44 Bed 9 Private MD: ED Physician Anthony Valadez HPI: 01/19 14:16 This 28 yrs old Male presents to ER via Ambulatory with complaints of Ear Pain.jmm 14:16 The patient presents with pain. Onset: The symptoms/episode began/occurred gradually, jmm today. Modifying factors: The symptoms are alleviated by nothing, the symptoms are aggravated by nothing. Associated signs and symptoms: Pertinent negatives: fever. This is a 28 year old male with no chronic medical conditions that presents to the ED with complaints of left ear pain, left jaw pain. Denies fever. . Historical: - Allergies: 13:55 No Known Allergies; ph - Home Meds: 13:55 None [Active]; ph - PMHx: 13:55 None; ph - Immunization history:: Adult Immunizations unknown. - Social history:: Smoking status: Patient/guardian denies using tobacco. - Ebola Screening: : No symptoms or risks identified at this time. ROS: 14:16 Constitutional: Negative for fever, chills, and weight loss, Cardiovascular: Negative jmm for chest pain, palpitations, and edema, Respiratory: Negative for shortness of breath, cough, wheezing, and pleuritic chest pain. 14:16 ENT: Positive for ear pain. 14:16 All other systems are negative. Exam: 14:16 Constitutional: This is a well developed, well nourished patient who is awake, alert, jmm and in no acute distress. Head/Face: atraumatic. Eyes: EOMI, no conjunctival erythema appreciated 14:16 Neck: Trachea midline, Supple Chest/axilla: Normal chest wall appearance and motion. 14:16 Abdomen/GI: Non distended, soft Back: Normal ROM Skin: General appearance color normal MS/ Extremity: Moves all extremities, no obvious deformities appreciated, no edema noted to the lower extremities Neuro: Awake and alert, normal gait Psych: Behavior is normal, Mood is normal, Patient is cooperative and pleasant 14:16 ENT: Ear canal(s): cerumen impaction, occluding the left ear canal. 14:16 ENT: left submandibular swelling appreciated. 14:16 Cardiovascular: Rate: normal, Rhythm: regular. 14:16 Respiratory: the patient does not display signs of respiratory distress, Respirations: normal, Breath sounds: are clear throughout. Vital Signs: 13:54 BP 149 / 82; Pulse 62; Resp 18; Temp 99.0; Pulse Ox 100% on R/A; ph 14:30 BP 132 / 78; Pulse 61; Resp 18; Temp 98.9; Pulse Ox 99% on R/A; ph MDM: 14:09 Patient medically screened. [facility] 14:19 Data reviewed: vital signs, nurses notes. Counseling: I had a detailed discussion with [facility] the patient and/or guardian regarding: the historical points, exam findings, and any diagnostic results supporting the discharge/admit diagnosis, the need for outpatient follow up, to return to the emergency department if symptoms worsen or persist or if there are any questions or concerns that arise at home. ED course: Patient is alert and non toxic in appearance. TM occluded. Patient is afebrile and non toxic in appearance. I do not suspect ludwigs angina. Symptoms appear consistent with sialadenitis vs lymphadenopathy. Patient given strict return precautions. Patient understood and agrees with the plan of care. . Administered Medications: No medications were administered Disposition: 16:10 Co-signature as Attending Physician, Anthony Valadez MD I agree with the assessment and kdr plan of care. Disposition: 01/19/19 14:23 Discharged to Home. Impression: Otalgia, Sialoadenitis, unspecified. - Condition is Stable. - Discharge Instructions: Earache, Adult, Salivary Gland Infection, Lymphangitis, Adult. - Prescriptions for Augmentin 875- 125 mg Oral Tablet - take 1 tablet by ORAL route every 12 hours for 10 days; 20 tablet. - Work release form, Medication Reconciliation Form, Thank You Letter, Antibiotic Education, Prescription Opioid Use form. - Follow up: Magali Roy MD; When: 2 - 3 days; Reason: Recheck today's complaints, Continuance of care, Re-evaluation by your physician. Signatures: Yuniel Gonzalez jb1 Anthony Valadez MD MD kdr Mickail, Joel, PA PA [facility] Ondina Echevarria RN RN ph Corrections: (The following items were deleted from the chart) 14:31 14:23 01/19/2019 14:23 Discharged to Home. Impression: Otalgia; Sialoadenitis, jb1 unspecified. Condition is Stable. Forms are Medication Reconciliation Form, Thank You Letter, Antibiotic Education, Prescription Opioid Use. Follow up: Magali Roy; When: 2 - 3 days; Reason: Recheck today's complaints, Continuance of care, Re-evaluation by your physician. stevie
== END 2019-01-19 14:31 | disposition home or self-care (01) ==
LOC: ER 13:39
DX: K11.20 Sialoadenitis, unspecified (principal); H61.22 Impacted cerumen, left ear
CPT/HCPCS: 99282

== ENCOUNTER 2020-10-17 01:52 | Emergency (ER) | payer OTHER ==
[2020-10-17] MEDS ORDERED: KETOROLAC 30 MG/ML INJ ONE (03:53)
--- NOTE | 2020-10-17 04:43 | ER ---
Nurse's Notes [facility] Name: Efe Austin Age: 30 yrs Sex: Male : 1990 Arrival Date: 10/17/2020 Time: 01:55 Bed 24 Private MD: Diagnosis: Otalgia, right ear Presentation: 10/17 02:25 Chief complaint: Patient states: right sided pain in head radiating to right jaw and iw back of head , feels like his head swollen in back, no fever , did not injure himself. Coronavirus screen: At this time, the client does not indicate any symptoms associated with coronavirus-19. Ebola Screen: Patient negative for fever greater than or equal to 101.5 degrees Fahrenheit, and additional compatible Ebola Virus Disease symptoms Patient denies exposure to infectious person. Patient denies travel to an Ebola-affected area in the 21 days before illness onset. No symptoms or risks identified at this time. Initial Sepsis Screen: Does the patient meet any 2 criteria? No. Patient's initial sepsis screen is negative. Does the patient have a suspected source of infection? No. Patient's initial sepsis screen is negative. Risk Assessment: Do you want to hurt yourself or someone else? Patient reports no desire to harm self or others. Onset of symptoms was October 16, 2020. 02:25 Method Of Arrival: Ambulatory iw 02:25 Acuity: RAN 4 iw Triage Assessment: 04:00 General: Appears in no apparent distress. Behavior is calm, cooperative. iw Historical: - Allergies: 02:29 No Known Allergies; iw - Home Meds: 02:29 None [Active]; iw - PMHx: 02:29 None; iw - PSHx: 02:29 leg; iw - Immunization history:: Adult Immunizations not up to date. - Social history:: Smoking status: Patient reports the use of cigarette tobacco products, smokes one pack cigarettes per day. - Family history:: not pertinent. Screenin:02 Abuse screen: Denies threats or abuse. Denies injuries from another. Nutritional iw screening: No deficits noted. Tuberculosis screening: No symptoms or risk factors identified. Fall Risk None identified. Assessment: 03:00 General: Appears in no apparent distress. Behavior is calm, cooperative. Pain: iw Complains of pain in right sabianism and back of head. Neuro: Level of Consciousness is awake, alert, obeys commands, Oriented to person, place, time, situation, Moves all extremities. Full function. Cardiovascular: Patient's skin is warm and dry. Respiratory: Respiratory effort is even, unlabored, Respiratory pattern is regular. Derm: Skin is intact, is healthy with good turgor. Musculoskeletal: Range of motion: intact in all extremities. Vital Signs: 02:25 BP 152 / 94; Pulse 83; Resp 16; Temp 98.0; Pulse Ox 100% on R/A; Weight 86.18 kg; iw Height 5 ft. 7 in. (170.18 cm); Pain 9/10; 02:25 Body Mass Index 29.76 (86.18 kg, 170.18 cm) iw ED Course: 01:55 Patient arrived in ED. bp1 02:28 Triage completed. iw 02:29 Arm band placed on. iw 02:37 Marianna Díaz RN is Primary Nurse. iw 02:38 Tabitha Shore MD is Attending Physician. ma2 03:00 Patient has correct armband on for positive identification. iw 04:02 CT Head Brain wo Cont In Process Unspecified. EDMS 04:42 Magali Roy MD is Referral Physician. ma2 05:02 No provider procedures requiring assistance completed. Patient did not have IV access iw during this emergency room visit. Administered Medications: 03:35 Drug: TORadol (ketorolac) 60 mg Route: IM; Site: right deltoid; iw 04:00 Follow up: Response: No adverse reaction iw Outcome: 04:42 Discharge ordered by . ma2 05:02 Discharged to home ambulatory, with family. iw 05:02 Condition: good 05:02 Discharge instructions given to patient, Instructed on discharge instructions, follow up and referral plans. medication usage, Demonstrated understanding of instructions, follow-up care, medications, Prescriptions given X 2. 05:03 Patient left the ED. iw Signatures: Dispatcher [employer] EDMS Marianna Díaz RN RN iw Tabitha Shore MD MD ma2 Christina Pollard bp1
--- NOTE | 2020-10-17 04:43 | EDPHYS ---
Physician Documentation [facility] Name: Efe Austin Age: 30 yrs Sex: Male : 1990 Arrival Date: 10/17/2020 Time: 01:55 Bed 24 Private MD: ED Physician Tabitha Shore HPI: 10/17 03:33 This 30 yrs old Male presents to ER via Ambulatory with complaints of Head ma2 Pain, Right Side. 03:33 The patient presents with pain. Onset: The symptoms/episode began/occurred gradually, 3 ma2 day(s) ago. Associated signs and symptoms: Pertinent negatives: lightheadedness, rhinorrhea. Severity of symptoms: At their worst the symptoms were moderate in the emergency department the symptoms are unchanged. dradual right sided headache and chronic ear pain. Historical: - Allergies: 02:29 No Known Allergies; iw - Home Meds: 02:29 None [Active]; iw - PMHx: 02:29 None; iw - PSHx: 02:29 leg; iw - Immunization history:: Adult Immunizations not up to date. - Social history:: Smoking status: Patient reports the use of cigarette tobacco products, smokes one pack cigarettes per day. - Family history:: not pertinent. ROS: 03:33 Constitutional: Negative for fever, chills, and weight loss. ma2 03:33 All other systems are negative. Exam: 03:33 Constitutional: This is a well developed, well nourished patient who is awake, alert, ma2 and in no acute distress. Head/Face: Normocephalic, atraumatic. Eyes: Pupils equal round and reactive to light, extra-ocular motions intact. Lids and lashes normal. Conjunctiva and sclera are non-icteric and not injected. Cornea within normal limits. Periorbital areas with no swelling, redness, or edema. ENT: Nares patent. No nasal discharge, no septal abnormalities noted. Tympanic membranes are normal and external auditory canals are clear. Oropharynx with no redness, swelling, or masses, exudates, or evidence of obstruction, uvula midline. Mucous membranes moist. Neck: Trachea midline, no thyromegaly or masses palpated, and no cervical lymphadenopathy. Supple, full range of motion without nuchal rigidity, or vertebral point tenderness. No Meningismus. Chest/axilla: Normal chest wall appearance and motion. Nontender with no deformity. No lesions are appreciated. Cardiovascular: Regular rate and rhythm with a normal S1 and S2. No gallops, murmurs, or rubs. Normal PMI, no JVD. No pulse deficits. Respiratory: Lungs have equal breath sounds bilaterally, clear to auscultation and percussion. No rales, rhonchi or wheezes noted. No increased work of breathing, no retractions or nasal flaring. Abdomen/GI: Soft, non-tender, with normal bowel sounds. No distension or tympany. No guarding or rebound. No evidence of tenderness throughout. Back: No spinal tenderness. No costovertebral tenderness. Full range of motion. Skin: Warm, dry with normal turgor. Normal color with no rashes, no lesions, and no evidence of cellulitis. MS/ Extremity: Pulses equal, no cyanosis. Neurovascular intact. Full, normal range of motion. Neuro: Awake and alert, GCS 15, oriented to person, place, time, and situation. Cranial nerves II-XII grossly intact. Motor strength 5/5 in all extremities. Sensory grossly intact. Cerebellar exam normal. Normal gait. 03:33 ENT: External ear(s): are unremarkable, Ear canal(s): are normal, TM's: are normal, Examination of the other ear shows no obvious abnormality, Nose: Vital Signs: 02:25 BP 152 / 94; Pulse 83; Resp 16; Temp 98.0; Pulse Ox 100% on R/A; Weight 86.18 kg; iw Height 5 ft. 7 in. (170.18 cm); Pain 9/10; 02:25 Body Mass Index 29.76 (86.18 kg, 170.18 cm) iw MDM: 02:38 Patient medically screened. ma2 04:41 Differential diagnosis: otitis media, otitis externa, acute otalgia, serotympanum. Data ma2 reviewed: vital signs, nurses notes. Counseling: I had a detailed discussion with the patient and/or guardian regarding: the historical points, exam findings, and any diagnostic results supporting the discharge/admit diagnosis, the presence of at least one elevated blood pressure reading (>120/80) during this emergency department visit, the need for outpatient follow up. 10/17 03:29 Order name: CT Head Brain wo Cont ma2 Administered Medications: 03:35 Drug: TORadol (ketorolac) 60 mg Route: IM; Site: right deltoid; iw 04:00 Follow up: Response: No adverse reaction iw Disposition: 10/17/20 04:42 Discharged to Home. Impression: Otalgia, right ear. - Condition is Stable. - Discharge Instructions: General Headache Without Cause, [id number]. - Prescriptions for Diclofenac Sodium 75 mg Oral Tablet Sustained Release - take 1 tablet by ORAL route 2 times per day; 30 tablet. Reglan 10 mg Oral Tablet - take 1 tablet by ORAL route every 6 hours . take 30 minutes before meals and at bedtime; 100 tablet. - Work release form, Medication Reconciliation Form, Thank You Letter, Antibiotic Education, Prescription Opioid Use form. - Follow up: Magali Roy; When: Tomorrow; Reason: If symptoms return. Signatures: Dispatcher [employer] Marianna Hui RN RN iw Alzahri, Mohammad, MD MD ma2 Corrections: (The following items were deleted from the chart) 05:03 04:42 10/17/2020 04:42 Discharged to Home. Impression: Otalgia, right ear. Condition is iw Stable. Prescriptions for Diclofenac Sodium 75 mg Oral Tablet Sustained Release - take 1 tablet by ORAL route 2 times per day; 30 tablet. and Forms are Medication Reconciliation Form, Thank You Letter, Antibiotic Education, Prescription Opioid Use. Follow up: Magali Roy; When: Tomorrow; Reason: If symptoms return. ma2
[2020-10-17 05:08] VITALS: BP 152/94; TEMP 98; O2SAT 100
--- NOTE | 2020-10-17 11:57 | RAD REPORT ---
EXAM DESCRIPTION: CT Head Without Intravenous Contrast CLINICAL HISTORY: The patient is 30 years old and is Male; PAIN TECHNIQUE: Axial computed tomography images of the head/brain without intravenous contrast. Sagitt al and coronal reformatted images were created and reviewed. This CT exam was performed using one o r more of the following dose reduction techniques: automated exposure control, adjustment of the mA and/or kV according to patient size, and/or use of iterative reconstruction technique. COMPARISON: No relevant prior studies available. FINDINGS: Brain: Unremarkable. No hemorrhage. No significant white matter disease. No edema. Ventricles: Unremarkable. No ventriculomegaly. Bones/joints: Unremarkable. No acute skull fracture. Soft tissues: Unremarkable. Sinuses: Unremarkable as visualized. No acute sinusitis. Mastoid air cells: No significant mastoid fluid. IMPRESSION: No acute intracranial findings. No hemorrhage. Electronically signed by: Magali Myers MD 10/17/2020 4:27 AM CDT Due to temporary technical issues with the PACS/Fluency reporting system, reports are being signed by the in house radiologist without review as a courtesy to ensure prompt reporting. The interpreting r adiologist is fully responsible for the content of the report.
== END 2020-10-17 05:03 | disposition home or self-care (01) ==
LOC: ER 01:52
DX: H92.01 Otalgia, right ear (principal); R51.9 Headache, unspecified; F17.210 Nicotine dependence, cigarettes, uncomplicated
CPT/HCPCS: 70450; 96372; 99283